=== PATIENT | male | born 1980 | race Caucasian/White ===

== ENCOUNTER 2018-05-08 10:36 | Emergency (ER) | payer SELFPAY ==
[~2018-05-08] VITALS: Ht 180.3 cm; Wt 90.7 kg
[~2018-05-08 10:36] MED LIST: AZIT250 PO; BUPR100 PO; CEPH500 PO; FLUC150A PO; HYDACE5 PO; IBUP600 PO; IBUP800; NAPR500 PO; Norco 5-325 Ta1 EACH PO; PROM25 PO; RXOXYACE PO; Ultram50 MG PO
[2018-05-08] MEDS ORDERED: BUPR150ER PO (10:46)
[2018-05-08] MEDS ORDERED: Monodox100 MG PO (11:02)
[2018-05-08] MEDS ORDERED: Prednisone20 MG PO (11:02)
== END 2018-05-08 11:06 | disposition home or self-care (01) ==
LOC: ER 10:36
DX: L03.113 Cellulitis of right upper limb (principal); T78.40XA Allergy, unspecified, initial encounter; F41.9 Anxiety disorder, unspecified; F17.200 Nicotine dependence, unspecified, uncomplicated; Z88.5 Allergy status to narcotic agent; Z79.899 Other long term (current) drug therapy
CPT/HCPCS: 99282

== ENCOUNTER 2019-07-14 11:11 | Emergency (ER) | payer SELFPAY ==
[~2019-07-14] VITALS: Ht 180.3 cm; Wt 83.9 kg
[~2019-07-14 11:11] MED LIST changes: +BUPR150ER PO; +Monodox100 MG PO; +Prednisone20 MG PO
== END 2019-07-14 13:00 | disposition home or self-care (01) ==
LOC: ER 11:11
DX: H57.9 Unspecified disorder of eye and adnexa (principal); F17.200 Nicotine dependence, unspecified, uncomplicated; Z88.5 Allergy status to narcotic agent
CPT/HCPCS: 99282

== ENCOUNTER 2019-09-22 13:56 | Emergency (ER) | payer OTHER ==
[~2019-09-22] VITALS: Ht 180.3 cm; Wt 90.7 kg
[2019-09-22 15:07] LABS: Source, Urine Clean Catch
[2019-09-22 15:20] LABS: Bilirubin, Urine Neg (Neg); Blood, Urine Neg (Neg); Glucose Qualitative, Urine Neg (Neg); Ketones, Urine Neg (Neg); Leukocyte Esterase, Urine Neg (Neg); Nitrite, Urine Neg (Neg); Protein, Urine Neg (Neg); Specific Gravity, Urine 1.005 (1.003-1.022); Urobilinogen, Urine NORM (Normal); pH, Urine 6.5 (5.0-8.0)
[2019-09-22 15:23] LABS: Appearance, Urine Clear (Clear); Color, Urine Yellow (P-Yellow)
[2019-09-22] MEDS ORDERED: Vibramycin100 MG PO (15:35)
== END 2019-09-22 15:53 | disposition home or self-care (01) ==
LOC: ER 13:56
PROVIDERS: Physician Assistant
DX: N45.1 Epididymitis (principal); N43.3 Hydrocele, unspecified; I86.1 Scrotal varices; N50.3 Cyst of epididymis; R60.0 Localized edema; F17.200 Nicotine dependence, unspecified, uncomplicated; Z88.5 Allergy status to narcotic agent
CPT/HCPCS: 76870; 81003; 99284-25